=== PATIENT | male | born 1960 | race Hispanic/Latino ===

== ENCOUNTER 2024-04-10 08:46 | Outpatient (CLI) | payer MEDICARE, MEDICAID | END 2024-04-10 08:47 | disposition home or self-care (01) | LOC: ULT 08:46 | PROVIDERS: ATTEND Urology | DX: N40.1 Benign prostatic hyperplasia with lower urinary tract symptoms (principal); R36.1 Hematospermia; Z87.898 Personal history of other specified conditions; N32.89 Other specified disorders of bladder | CPT/HCPCS: 76770 ==

== ENCOUNTER 2024-11-05 16:23 | Outpatient (CLI) | payer MEDICARE | END 2024-11-05 16:24 | disposition home or self-care (01) | LOC: LABBT 16:23 | PROVIDERS: ATTEND Orthopaedic Surgery | DX: Z01.810 Encounter for preprocedural cardiovascular examination (principal); M1A.9XX1 Chronic gout, unspecified, with tophus (tophi) | CPT/HCPCS: 93005; 93010 ==

== ENCOUNTER 2024-11-07 09:28 | Day surgery (SDC) | payer MEDICARE ==
[2024-11-05 16:36] VITALS: BMI 30.4
[2024-11-07] MEDS ORDERED: Lidocaine 1% (PF) 30 ML VIAL ONE (10:03)
[2024-11-07] MEDS ORDERED: Ropivacaine 0.5% HCl/PF (150 MG/30 ML VIAL) ONE (10:03)
[2024-11-07] MEDS ORDERED: Acetaminophen 500 MG TAB ONE (10:14)
[2024-11-07] MEDS ORDERED: Lidocaine 1% PF 5 ML VIAL ONE (11:33)
[2024-11-07] MEDS ORDERED: Rocuronium Bromide 10 MG/ML (10ML VIAL) ONE (11:33)
[2024-11-07] MEDS ORDERED: PROPOFOL 20 ML ONE ×2 (11:33→13:10)
[2024-11-07] MEDS ORDERED: fentaNYL PF 100 MCG/2 ML SYRINGE ONE (11:33)
[2024-11-07] MEDS ORDERED: Ondansetron PF 4 MG/2 ML Vial ONE (11:33)
[2024-11-07] MEDS ORDERED: SUGAMMADEX SODIUM 200 MG/2 ML VIAL ONE ×2 (11:33→13:24)
[2024-11-07] MEDS ORDERED: Sevoflurane 250 ML INH ANEST BOTTLE ONE (11:39)
[2024-11-07] MEDS ORDERED: CEFAZOLIN 2 GM VIAL ONE (11:49)
[2024-11-07] MEDS ORDERED: Ketorolac Tromethamine 30 MG (1 mL) VIAL ONE (12:39)
== END 2024-11-07 14:51 | disposition home or self-care (01) ==
LOC: SDC 09:28
PROVIDERS: ATTEND Orthopaedic Surgery
PROC: 0MB40ZZ Excision of Left Elbow Bursa and Ligament, Open Approach (ICD-10-PCS; principal; 2024-11-07)
DX: M1A.9XX1 Chronic gout, unspecified, with tophus (tophi) (principal); I10 Essential (primary) hypertension; E11.9 Type 2 diabetes mellitus without complications; E78.5 Hyperlipidemia, unspecified; Z88.8 Allergy status to other drugs, medicaments and biological substances; Z88.5 Allergy status to narcotic agent
CPT/HCPCS: 24105; J0169; J0665; J1100; J1885; J2250; J2405; J2704; 88304; J2795; J3010